=== PATIENT | female | born 1995 | race Caucasian/White ===

== ENCOUNTER 2025-04-17 23:21 | Emergency (ER) | payer OTHER ==
[~2025-04-17] VITALS: Ht 154.9 cm; Wt 47.0 kg
[2025-04-17 23:41] VITALS: O2SAT 99
[2025-04-17] MEDS ORDERED: LORAZEPAM 2MG/ML INJ IM STA (23:58)
[2025-04-18] MEDS: HALOPERIDOL LACTATE 5MG/ML VIAL IM STA (00:15)
[2025-04-18] MEDS: LORAZEPAM 2MG/ML UD SYRINGE IM SCH (00:15)
[2025-04-18] MEDS: DIPHENHYDRAMINE 50MG/ML VIAL IM STA (00:16)
[2025-04-18 00:45] LABS: BASOPHILS % 0.5 % (0.0-2.0); EOSINOPHILS % 0.3 % (0.0-5.0); HEMOGLOBIN. 13.1 g/dL (12.0-16.0); LYMPHOCYTES % 29.8 % (20.0-50.0); MEAN CORPUSCULAR HEMOGLOBIN 31.2 pg (28.0-32.0); MEAN CORPUSCULAR HGB CONC 33.6 g/dL (31.0-37.0); MEAN CORPUSCULAR VOLUME 92.9 fL (81.0-99.0); MEAN PLATELET VOLUME 7.7 fl (7.4-10.4); NEUTROPHILS % 66.4 % (40.0-76.0); PLATELET 343 x1000/uL (130-400); WHITE BLOOD COUNT 7.6 x1000/uL (4.5-11.0)
[2025-04-18 00:54] LABS: CHLORIDE 114 mEq/L (98-107); POTASSIUM 3.7 mEq/L (3.5-5.1); SODIUM 151 mEq/L (136-145)
[2025-04-18 00:56] LABS: CALCIUM 8.7 mg/dL (8.7-10.4); CARBON DIOXIDE 19 mEq/L (21-32)
[2025-04-18 01:00] LABS: CREATININE 0.7 mg/dL (0.6-1.0); GLUCOSE 101 mg/dL (70-105)
[2025-04-18 01:01] LABS: UREA NITROGEN BLOOD 13 mg/dL (9-23)
[2025-04-18 01:03] LABS: CREATINE KINASE 359 IU/L (34-145)
[2025-04-18 01:10] LABS: ETHANOL BLOOD 331 mg/dL (<10)
[2025-04-18 04:05] VITALS: BP 120/80; PULSE 87; RESP 18; TEMP 36.7; O2SAT 99
== END 2025-04-18 04:19 | disposition home or self-care (01) ==
LOC: ER 23:33
DX: F10.129 Alcohol abuse with intoxication, unspecified (principal); R41.82 Altered mental status, unspecified; Y90.8 Blood alcohol level of 240 mg/100 ml or more
CPT/HCPCS: 36415; 99284; 80048; 80320; 82550; 85025; 96372; J1200; J1630; J2060; Z7610 ×3; G0480